=== PATIENT | male | born 1955 | race Two or more races ===

== ENCOUNTER 2024-11-05 11:33 | Inpatient (IN) | payer OTHER ==
[~2024-11-05] VITALS: Ht 170.2 cm; Wt 0.5 kg
[2024-11-05] MEDS ORDERED: PIPERACILLIN/TAZOBACTAM SODIUM 3.375 GM VIAL IV ONE ×2 (12:45→13:03)
[2024-11-05] MEDS ORDERED: 0.9 % SODIUM CHLORIDE 1,000 ML IV SCH ×2 (12:45→20:30)
[2024-11-05] MEDS ORDERED: DIATRIZOATE MEGLUMINE, SODIUM 30 ML BOTTLE ONE (13:49)
[2024-11-05 13:51] LABS: HEMATOCRIT 41.7 % (39.0-48.0); HEMOGLOBIN 14.1 g/dL (13-16.00); MEAN CELL VOLUME 91.3 fL (80.0-100.00); MEAN CORPUSCULAR HEMOGLOBIN 30.9 pg (27.00-32.0); MEAN CORPUSCULAR HGB CONC 33.9 g/dl (32.0-36.0); PLATELET COUNT 281 K/uL (150-450); RED BLOOD COUNT 4.57 M/uL (4.00-6.00); RED CELL DISTRIBUTION WIDTH 13.1 % (11.5-14.5)
[2024-11-05 14:37] LABS: URINE APPEARANCE Clear; URINE BILIRRUBIN Negative (NEGATIVE); URINE BLOOD Negative; URINE COLOR Dark Yellow; URINE GLUCOSE Negative (NEGATIVE); URINE KETONE Trace (NEGATIVE); URINE LEUKOCYTE Small; URINE NITRATE Negative; URINE PROTEIN Trace (NEGATIVE); URINE UROBILINOGEN 0.2 E.U./dl
[2024-11-05 14:42] LABS: URINE BACTERIA 45.2 uL (0.0-1933); URINE EPITHELIAL CELLS 10.9 uL (0.0-38.8); URINE RBC 7.9 uL (0.0-20.8); URINE WBC 57.7 uL (0.0-23.2)
[2024-11-05 15:06] LABS: BILIRUBIN TOTAL 0.26 mg/dL (0.3-1.2); CALCIUM 9.9 mg/dL (8.5-10.1); CREATININE SERUM 1.43 mg/dL (0.70-1.30); GFR 49.33; GLOBULINA 5.2 G/DL (2.4-3.5); TOTAL PROTEIN 8.2 gm/dL (6.4-8.2)
[2024-11-05 15:20] LABS: URINE CAST 0.29 uL (0.0-1.40)
[2024-11-05 15:58] LABS: POTASSIUM 4.42 mEq/L (3.5-5.1)
[2024-11-05] MEDS ORDERED: ACETAMINOPHEN 500 MG GEL..CAP PO PRN (20:30)
[2024-11-05 21:45] LABS: INR 1.21
[2024-11-06] VITALS: BP 127/77; O2SAT 99
[2024-11-06] MEDS ORDERED: PIPERACILLIN/TAZOBACTAM SODIUM 3.375 GM in DEXTROSE 5 % IN WATER 100 ML IV SCH
[2024-11-06 05:48] VITALS: BP 120/74; O2SAT 93
[2024-11-06 08:00] VITALS: BP 138/84; O2SAT 97
[2024-11-06] MEDS ORDERED: TAMSULOSIN HCL 0.4 MG CAP PO SCH (09:00)
[2024-11-06] MEDS ORDERED: FAMOTIDINE/PF 20 MG in 0.9 % SODIUM CHLORIDE 8 ML IV PUSH SCH (09:00)
[2024-11-06] MEDS ORDERED: ENOXAPARIN SODIUM 40 MG/0.4 ML SYRINGE SUBCUTANEO SCH (09:00)
[2024-11-06] MEDS ORDERED: ENALAPRIL MALEATE 5 MG TABLET PO SCH (09:00)
[2024-11-06] MEDS ORDERED: FINASTERIDE 5 MG TABLET PO SCH (09:00)
[2024-11-06 15:40] VITALS: BP 146/89; O2SAT 97
[2024-11-06] MEDS ORDERED: DEXTROSE 5%-WATER 100ML IV.SOLN ONE (15:41)
[2024-11-06] MEDS ORDERED: fentaNYL CITRATE 50 MCG/ML AMPUL IV PUSH ONE (17:15)
[2024-11-06] MEDS ORDERED: MIDAZOLAM HCL 2 MG/2 ML VIAL IV PUSH ONE (17:15)
[2024-11-06] MEDS ORDERED: FentaNYL CITRATE/PF 50MCG/ML 2ML VIAL IJ ONE (21:15)
[2024-11-07 00:16] VITALS: BP 140/65; O2SAT 97
[2024-11-07 08:00] VITALS: BP 150/87; O2SAT 98
[2024-11-07 17:21] VITALS: BP 127/75; O2SAT 99
[2024-11-07 23:57] VITALS: BP 125/76; O2SAT 98
[2024-11-08 07:51] VITALS: BP 161/82; O2SAT 97
[2024-11-08 11:36] LABS: HEMATOCRIT 39.3 % (39.0-48.0); HEMOGLOBIN 13.4 g/dL (13-16.00); MEAN CELL VOLUME 89.3 fL (80.0-100.00); MEAN CORPUSCULAR HEMOGLOBIN 30.5 pg (27.00-32.0); MEAN CORPUSCULAR HGB CONC 34.1 g/dl (32.0-36.0); PLATELET COUNT 287 K/uL (150-450); RED BLOOD COUNT 4.39 M/uL (4.00-6.00); RED CELL DISTRIBUTION WIDTH 13.2 % (11.5-14.5)
[2024-11-08 12:46] LABS: ALBUMIN 2.4 gm/dL (3.4-5.0); CREATININE SERUM 1.1 mg/dL (0.70-1.30); GFR 66.77; PHOSPHOROUS 2.3 mg/dL (2.5-4.9); POTASSIUM 4.89 mEq/L (3.5-5.1)
[2024-11-08 16:00] VITALS: BP 165/81; O2SAT 99
[2024-11-09 00:22] VITALS: BP 129/84; O2SAT 99
[2024-11-09 08:00] VITALS: BP 150/85; O2SAT 100
[2024-11-09] MEDS ORDERED: FAMOtidine 20 MG TABLET PO SCH (09:00)
[2024-11-09] MEDS ORDERED: PANTOPRAZOLE SODIUM 40 MG/VIAL VIAL IV SCH (14:07)
[2024-11-09 16:00] VITALS: BP 174/98; O2SAT 100
[2024-11-09] MEDS ORDERED: ENALAPRILAT DIHYDRATE 1.25 MG/ML VIAL IV PRN (17:45)
[2024-11-10 00:32] VITALS: BP 129/77; O2SAT 100
[2024-11-10 08:00] VITALS: BP 160/73; O2SAT 99
[2024-11-10] MEDS ORDERED: PANTOPRAZOLE SODIUM 40 MG TABLET.DR PO SCH (09:00)
[2024-11-10 16:00] VITALS: BP 160/90; O2SAT 99
[2024-11-10 20:00] VITALS: BP 143/84; O2SAT 99
[2024-11-11 00:18] VITALS: BP 156/84; O2SAT 97
[2024-11-11 09:00] VITALS: BP 160/94; O2SAT 97
[2024-11-11 16:00] VITALS: BP 159/80; O2SAT 97
[2024-11-12 00:38] VITALS: BP 121/75; O2SAT 96
[2024-11-12 08:00] VITALS: BP 159/87; O2SAT 97
[2024-11-12 10:27] LABS: HEMATOCRIT 40.6 % (39.0-48.0); HEMOGLOBIN 13.8 g/dL (13-16.00); MEAN CORPUSCULAR HEMOGLOBIN 30.2 pg (27.00-32.0); PLATELET COUNT 328 K/uL (150-450); RED BLOOD COUNT 4.56 M/uL (4.00-6.00); RED CELL DISTRIBUTION WIDTH 13.6 % (11.5-14.5)
[2024-11-12 10:43] LABS: ERYTHROCYTE SEDIMENTATION RATE 34 mm/hr
[2024-11-12 11:17] LABS: ALBUMIN 2.8 gm/dL (3.4-5.0); BILIRUBIN TOTAL 0.28 mg/dL (0.3-1.2); CALCIUM 9.4 mg/dL (8.5-10.1); CREATININE SERUM 1.18 mg/dL (0.70-1.30); GFR 61.57; GLOBULINA 3.6 G/DL (2.4-3.5); POTASSIUM 4.65 mEq/L (3.5-5.1); TOTAL PROTEIN 6.4 gm/dL (6.4-8.2)
[2024-11-12 11:21] LABS: C-REACTIVE PROTEIN 1.02 MG/DL (0.00-0.29)
[2024-11-12] MEDS ORDERED: DIATRIZOATE MEGLUMINE, SODIUM 30 ML BOTTLE PO NR (13:00)
[2024-11-12 16:00] VITALS: BP 165/91; O2SAT 98
[2024-11-12 20:00] VITALS: BP 158/92
[2024-11-13 01:01] VITALS: BP 138/79; O2SAT 97
[2024-11-13 08:00] VITALS: BP 170/84; O2SAT 100
[2024-11-13 16:00] VITALS: BP 160/89; O2SAT 99
[2024-11-13] MEDS ORDERED: hydrALAZINE HCL 20 MG VIAL IV PRN (18:00)
[2024-11-14 00:27] VITALS: BP 131/83; O2SAT 97
[2024-11-14 08:00] VITALS: BP 158/90; O2SAT 100
[2024-11-14] MEDS ORDERED: ENALAPRIL MALEATE 5 MG TABLET PO SCH (09:00)
[2024-11-14 16:00] VITALS: BP 152/80; O2SAT 100
[2024-11-14] MEDS ORDERED: PANTOPRAZOLE SODIUM 40 MG TABLET.DR PO SCH (21:00)
[2024-11-15 01:02] VITALS: BP 119/78; O2SAT 98
[2024-11-15 08:00] VITALS: BP 164/90; O2SAT 99
[2024-11-15 10:03] LABS: HEMATOCRIT 44.1 % (39.0-48.0); MEAN CELL VOLUME 89.3 fL (80.0-100.00); MEAN CORPUSCULAR HEMOGLOBIN 30.4 pg (27.00-32.0); PLATELET COUNT 368 K/uL (150-450); RED BLOOD COUNT 4.94 M/uL (4.00-6.00); RED CELL DISTRIBUTION WIDTH 13.9 % (11.5-14.5)
[2024-11-15 10:37] LABS: ALBUMIN 3.4 gm/dL (3.4-5.0); CREATININE SERUM 1.31 mg/dL (0.70-1.30); GFR 54.58; PHOSPHOROUS 2.5 mg/dL (2.5-4.9); POTASSIUM 4.78 mEq/L (3.5-5.1)
== END 2024-11-15 15:13 | disposition home or self-care (01) | DRG 392 ==
LOC: ER 11:35 → SURG 21:52 → SURH 11-08 11:23
PROVIDERS: Emergency Medicine; General Practice; Internal Medicine Nephrology; ADMIT Internal Medicine; ATTEND Internal Medicine
PROC: BW21YZZ Computerized Tomography (CT Scan) of Abdomen and Pelvis using Other Contrast (ICD-10-PCS; principal; 2024-11-05)
PROC: 0W9F3ZZ Drainage of Abdominal Wall, Percutaneous Approach (ICD-10-PCS; 2024-11-06)
PROC: BW21ZZZ Computerized Tomography (CT Scan) of Abdomen and Pelvis (ICD-10-PCS; 2024-11-12)
PROC: 05H933Z Insertion of Infusion Device into Right Brachial Vein, Percutaneous Approach (ICD-10-PCS; 2024-11-15)
DX: K57.20 Diverticulitis of large intestine with perforation and abscess without bleeding (principal); K63.2 Fistula of intestine; N17.9 Acute kidney failure, unspecified; L02.211 Cutaneous abscess of abdominal wall; B96.4 Proteus (mirabilis) (morganii) as the cause of diseases classified elsewhere; B96.29 Other Escherichia coli [E. coli] as the cause of diseases classified elsewhere; B96.89 Other specified bacterial agents as the cause of diseases classified elsewhere